=== PATIENT | male | born 1955 | race Caucasian/White ===

== ENCOUNTER → 2019-03-13 | Outpatient (CLI) | payer OTHER ==
--- NOTE | 2019-03-13 16:58 | PCVCIMAG ---
APPROVED REPORT Study performed: 03/13/2019 14:52:24 EXAM: Comprehensive 2D, Doppler, and color-flow Echocardiogram Patient Location: Echo lab Room #: 2Status: routine BSA: 2.46 HR: 68 bpmBP: 148/80 mmHg Rhythm: NSR Other Information Study Quality: Good Risk Factors: Cardiac Risk Factors: HTN, Hyperlipidemia,Elev cor Ca+ score Indications Hypertension/HDD 2D Dimensions IVSd: 12.87 (7-11mm)LVOT Diam: 26.28 (18-24mm) LVDd: 52.83 mm PWd: 11.18 (7-11mm)Ascending Ao: 40.36 (22-36mm) LVDs: 38.78 (25-40mm) Left Atrium: 41.79 (27-40mm) Aortic Root: 29.30 mm LV Single Plane 4CH: 61.36 % LV Single Plane 2CH: 70.16 % Biplane EF: 64.1 % Volumes Left Atrial Volume (Systole) Single Plane 4CH: 67.34 mLSingle Plane 2CH: 96.44 mL Biplane LA Volume: 82.00 mLLA ESV Index: 33.00 mL/m2 Aortic Valve LVOT Max P.18 mmHg LVOT Max V: 1.02 m/s LUIZA Vmax: 3.92 cm2 Mitral Valve E/A Ratio: 0.7 MV Decel. Time: 151.52 ms MV E Max Chase.: 0.63 m/s MV A Chase.: 0.85 m/s IVRT: 93.43 ms TDI E/Lateral E': 5.73E/Medial E': 7.00 Medial E' Chase.: 0.09 m/s Lateral E' Chase.: 0.11 m/s Pulmonary Valve PV Peak Chase.: 0.88 m/sPV Peak Gr.: 3.09 mmHg Pulmonary Vein P Vein S: 0.51 m/sP Vein A: 0.30 m/s P Vein D: 0.33 m/sP Vein A Dur.: 117.6 msec P Vein S/D Ratio: 1.55 Tricuspid Valve TR Peak Chase.: 2.46 m/s TR Peak Gr.: 24.15 mmHg TV Vmax: 0.53 m/sPA Pressure: 31.00 mmHg Left Ventricle The left ventricle is normal size. There is normal LV segmental wall motion. Mild concentric left ventricular hypertrophy. Left ventricular systolic function is normal. The left ventricular ejection fraction is within the normal range. LVEF is 60-65%. Mild diastolic dysfunction is present (impaired relaxation pattern). Right Ventricle The right ventricle is normal size. The right ventricular systolic function is normal. Atria The left atrium size is normal. The right atrium size is normal. Aortic Valve Mild aortic valve sclerosis, trileaflet. No aortic regurgitation is present. There is no aortic valvular stenosis. Mitral Valve The mitral valve is normal in structure. There is no mitral valve regurgitation noted. No evidence of mitral valve stenosis. Tricuspid Valve The tricuspid valve is normal in structure. Trace tricuspid regurgitation with a PA pressure of 30 mmHg Mild pulmonary hypertension.. Pulmonic Valve The pulmonary valve is normal in structure. There is no pulmonic valvular regurgitation. Great Vessels The aortic root is normal in size. The ascending aorta is mildly dilated (4.0cm) IVC is normal in size and collapses >50% with inspiration. Pericardium There is no pericardial effusion. There is no pleural effusion. <Conclusion> Left ventricular systolic function is normal. There is normal LV segmental wall motion. LVEF is 60-65%. Mild diastolic dysfunction Mild aortic valve sclerosis, trileaflet. No aortic regurgitation or stenosis The mitral valve is normal in structure. No mitral valve regurgitation. Trace tricuspid regurgitation with a pulmonary artery pressure of 30 mmHg The ascending aorta is mildly dilated (4.0cm) There is no pericardial effusion.
--- NOTE | 2019-03-13 17:01 | PCVCIMAG ---
APPROVED REPORT Patient Location: Echo lab- [facility] STRESS TEST Room #: 2 Stress Nurse: Bettie Mayers RN INDICATIONS; Elevated coronary Ca+ score,HTN, HLP The patient exercised according to the CARLSO protocol for 10:14 mins; achieving a work level of 13.4 METS. The resting heart rate of 84 bpm nat[place] to a maximum heart rate of 157 bpm. This value represent 100% of the maximal, age-predicted heart rate. The resting blood pressure of 148/80 mmHg, natalya to a maximum blood pressure of 204/78 mmHg. The exercise test was stopped due to fatigue. Resting EKG: Sinus rhythm, early R-wave progression Stress EKG: No significant dysrhythmias. No ST segment shifts diagnostic of myocardial ischemia. Conclusion 1. Maximal treadmill exercise study negative for exercise-induced myocardial ischemia. 2. No subjective signs of ischemia. No dysrhythmias. No diagnostic ischemic electrocardiographic changes. 3. The study was associated with good exercise capacity (13.4 METS)
== END | disposition home or self-care (01) ==
LOC: PCVCIMAG 14:41
PROVIDERS: ATTEND Internal Medicine
DX: I35.8 Other nonrheumatic aortic valve disorders (principal); I10 Essential (primary) hypertension; E78.5 Hyperlipidemia, unspecified; R93.1 Abnormal findings on diagnostic imaging of heart and coronary circulation
CPT/HCPCS: 93017; 93306